=== PATIENT | female | born 1950 | race Caucasian/White ===

== ENCOUNTER → 2016-12-12 | Outpatient (CLI) | payer OTHER, MEDICARE | LOC: FIMAGING 12:58 | PROVIDERS: ATTEND Internal Medicine Hematology & Oncology | DX: Z12.31 Encounter for screening mammogram for malignant neoplasm of breast (principal) | CPT/HCPCS: G0202 ==

== ENCOUNTER 2017-01-31 15:30 | Inpatient (IN) | payer OTHER, MEDICARE ==
--- NOTE | 2017-01-31 16:27 | EDPHY ---
HPI/HX/ROS/PE/MDM Narrative: CHIEF COMPLAINT: Facial and neck swelling. HISTORY OF PRESENT ILLNESS: This patient is a 66 year old female arriving with her for evaluation of right-sided facial and neck swelling worsening over the last 2-3 days. Her symptoms began with swelling in her face and pain in her teeth. Yesterday, she went to the dentist who took x-rays and then made an incision to drain an abscess and prescribed Clindamycin. She feels her facial swelling has reduced. At 2:30 this afternoon, she developed considerable swelling under her chin and down her neck over about 45 minutes. She denies shortness of breath. She has not identified any difficulty swallowing, but has not tried to eat or drink. No fever, chills, chest pain, shortness of breath, palpitations, vomiting, diarrhea , urinary complaints, headache, lightheadedness. REVIEW OF SYSTEMS: Aside from elements discussed in the HPI, a comprehensive 10-point review of systems was reviewed and is negative. PAST MEDICAL HISTORY: 1. History of breast cancer (lumpectomy) 2. Hypertension 3. Congestive heart failure SOCIAL HISTORY: at bedside. Current smoker. Lives in [place]. VITAL SIGNS: Reviewed by me GENERAL: Well-developed, well-nourished, resting comfortably in no respiratory distress. HEENT: Right-sided swelling, erythema, redness and warmth from angle of jaw up to right eye. Tenderness submandibularly. Eyes: No icterus, no injection. Mouth: moist mucous membranes. Swelling along right lower gumline almost covering lower teeth. Swollen uvula. Neck: Swelling under chin extending down to sternal notch. LUNGS: Clear to auscultation bilaterally, no wheezes, rhonchi or rales. CARDIAC: Regular rate and rhythm, no rubs, murmurs or gallops. ABDOMEN: Soft, nontender, nondistended, bowel sounds normal. BACK: No CVA tenderness. EXTREMITIES: No trauma. No edema. Range of motion is normal throughout. NEURO: Alert and oriented, grossly nonfocal. SKIN: Warm and dry, no rash. No urticaria. PSYCHIATRIC: Normal mentation, no agitation. Portions of this note were transcribed by a medical assistant supervisor. I personally performed a history, physical exam, medical decision making, and confirmed accuracy of information the transcribed note. ED Course: 66 year old female presents with right-sided facial swelling following a dental procedure. Evaluation did include blood work and CT scan of the neck and face. 18:30 JESIKA Cortez for otolaryngology assessed this patient. We are awaiting the CT results. 19:[address] Cagle, radiologist. CT shows right lower abscess at molar, 1.2cm, swelling down to sternal area, masseter muscle swelling. ENT recommends clindamycin. Patient's laboratory evaluation also remarkable for mild hyponatremia. 19:18 Spoke with hospitalist service. Dr. Kinney accepts admission. Patient will be treated with IV antibiotics and followed by ENT while in the hospital. Patient has had no fever here. MDM: Differential diagnoses for the patient's symptom complex was considered including but not limited to dental abscess, deep space neck infection, cellulitis of the face, airway compromise, dental caries. - Data Points Imaging Results: Imaging Impressions Neck CT 01/31/17 16:27 Impression: 1. Small lateral posterior lower jaw periodontal abscess of 1.6 x 0.6 x 1.2 cm, lateral to the molar tooth on the right. 2. Significantly more swollen right masseter muscle, also associated with extensive subcutaneous edema and cellulitis, from the jaw to the suprasternal notch. Findings and recommendations discussed with Marielle Santos MD at 1911 hour, 01/31/2017. Final report concurs with initial preliminary interpretation. Imaging: Discussed imaging studies w/ call or contact centre team leader Radiologist Laboratory Results: Laboratory Results 01/31/17 16:56 01/31/17 16:56 01/31/17 01/31/17 01/31/17 16:56 16:56 16:56 WBC 11.79 10^3/uL H 10^3/uL (3.80-9.50) RBC 3.51 10^6/uL L 10^6/uL (4.18-5.33) Hgb 12.2 g/dL L g/dL (12.6-16.3) Hct 34.6 % L % (38.0-47.0) MCV 98.6 fL fL (81.5-99.8) MCH 34.8 pg H pg (27.9-34.1) MCHC 35.3 g/dL g/dL (32.4-36.7) RDW 12.9 % % (11.5-15.2) Plt Count 171 10^3/uL 10^3/uL (150-400) MPV 10.0 fL fL (8.7-11.7) Neut % (Auto) 78.2 % H % (39.3-74.2) Lymph % (Auto) 12.2 % L % (15.0-45.0) [place] % (Auto) 8.1 % % (4.5-13.0) Eos % (Auto) 0.9 % % (0.6-7.6) Baso % (Auto) 0.3 % % (0.3-1.7) Nucleat RBC Rel Count 0.0 % % (0.0-0.2) Absolute Neuts (auto) 9.21 10^3/uL H 10^3/uL (1.70-6.50) Absolute Lymphs (auto) 1.44 10^3/uL 10^3/uL (1.00-3.00) Absolute Monos (auto) 0.95 10^3/uL H 10^3/uL (0.30-0.80) Absolute Eos (auto) 0.11 10^3/uL 10^3/uL (0.03-0.40) Absolute Basos (auto) 0.04 10^3/uL 10^3/uL (0.02-0.10) Absolute Nucleated RBC 0.00 10^3/uL 10^3/uL (0-0.01) Immature Gran % 0.3 % % (0.0-1.1) Immature Gran # 0.04 10^3/uL 10^3/uL (0.00-0.10) Sodium 129 mEq/L L mEq/L (134-144) Potassium 4.3 mEq/L mEq/L (3.5-5.2) Chloride 93 mEq/L L mEq/L (97-110) Carbon Dioxide 25 mEq/l mEq/l (22-31) Anion Gap 11 mEq/L mEq/L (8-16) BUN 11 mg/dL mg/dL (7-23) Creatinine 0.9 mg/dL mg/dL (0.6-1.0) Estimated GFR > 60 Glucose 120 mg/dL H mg/dL (70-100) Serum Osmolality 274 mosmo/kg L mosmo/kg (280-297) Calcium 9.5 mg/dL mg/dL (8.5-10.4) Troponin I < 0.012 ng/mL ng/mL (0.000-0.034) Medications Given: Carvedilol (Coreg) 25 mg PO BID OSVALDO Stop: 07/30/17 20:59 Last Admin: 01/31/17 20:59 Dose: 25 mg Gabapentin (Neurontin) 300 mg PO BID OSVALDO Stop: 07/30/17 20:59 Last Admin: 01/31/17 20:59 Dose: 300 mg Sodium Chloride (Ns) 1,000 mls @ 75 mls/hr IV CONT OSVALDO Stop: 02/01/17 09:49 Last Admin: 01/31/17 20:59 Dose: 1,000 mls Lorazepam (Ativan) 1 mg PO HS PRN PRN Reason: Sleep/Insomnia Stop: 07/30/17 20:18 Last Admin: 01/31/17 21:48 Dose: 1 mg Ondansetron HCl (Zofran Odt) 4 mg PO Q4HRS PRN PRN Reason: Nausea/Vomiting, Use 1st Stop: 07/30/17 20:16 Last Admin: 01/31/17 21:48 Dose: 4 mg Oxycodone HCl (Oxycodone Ir) 5 mg PO Q3HRS PRN PRN Reason: Pain, Severe Able to Take PO Stop: 02/10/17 20:16 Last Admin: 01/31/17 21:48 Dose: 2.5 mg Discontinued Medications Sodium Chloride (Ns) 500 mls @ 1,000 mls/hr IV EDNOW ONE PRN Reason: Protocol Stop: 01/31/17 16:57 Last Admin: 01/31/17 16:58 Dose: 500 mls Clindamycin Phosphate/Dextrose (Cleocin 600 Mg (Premix)) 50 mls @ 100 mls/hr IV EDNOW ONE PRN Reason: Protocol Stop: 01/31/17 19:52 Last Admin: 01/31/17 20:16 Dose: Not Given Ertapenem 1 gm/ Sodium (Chloride) 100 mls @ 200 mls/hr IV EDNOW ONE PRN Reason: Protocol Stop: 01/31/17 19:53 Last Admin: 01/31/17 20:10 Dose: 100 mls General Time Seen by Provider: 01/31/17 16:09 Initial Vital Signs: Initial Vital Signs Temperature (C) 36.5 C 01/31/17 15:35 Heart Rate 69 01/31/17 15:35 Respiratory Rate 18 01/31/17 15:35 Blood Pressure 136/75 H 01/31/17 15:35 O2 Sat (%) 96 01/31/17 15:35 O2 Delivery Mode Room Air Allergies/Adverse Reactions: codeine [Codeine] Allergy (Intermediate, Verified 01/31/17 15:33) Vomiting amoxicillin trihydrate [From Augmentin] Allergy (Mild, Verified 01/31/17 15:33) Rash ciprofloxacin [From Cipro] Allergy (Mild, Verified 01/31/17 15:33) ciprofloxacin HCl [From Cipro] Allergy (Mild, Verified 01/31/17 15:33) potassium clavula *RETIRED-12/10/11 [From Augmentin] Allergy (Mild, Verified 05/18 15:33) Sulfa (Sulfonamide Antibiotics) Allergy (Mild, Verified 01/31/17 15:33) Home Medications: Medication Instructions Recorded Aspirin [Aspirin 81mg (*)] 81 mg PO DAILY@1200 01/31/17 Atorvastatin Calcium [Lipitor 40 40 mg PO DAILY@1800 01/31/17 mg (*)] Carvedilol [Coreg (*)] 25 mg PO BID 01/31/17 Cholecalciferol Vit D3 [Vitamin D3] 1,200 units PO DAILY@10 01/31/17 Clindamycin HCl [Clindamycin] 300 mg PO QID 01/31/17 Clopidogrel Bisulfate [Plavix (*)] 75 mg PO DAILY 01/31/17 Esomeprazole Mag Trihydrate 40 mg PO DAILY 01/31/17 [Nexium] Fluticasone Nasal [Flonase Nasal 1 sprays NASAL DAILY PRN 01/31/17 [place] (RX)] Furosemide [Lasix 40 MG (*)] 40 mg PO BIDDIUR 01/31/17 Gabapentin [Neurontin 300 MG (*)] 300 mg PO BID 01/31/17 [place]/Supplements -Info Only 1 ea PO DAILY 01/31/17 LORazepam [Ativan (*)] 1 mg PO HS PRN 01/31/17 Lisinopril [Zestril 5 mg (*)] 5 mg PO DAILY 01/31/17 Departure - Departure Disposition: [facility] Acute Clinical Impression: Dental abscess Cellulitis Qualifiers: Site of cellulitis: neck Qualified Code(s): L03.221 - Cellulitis of neck Condition: Fair Report Scribed for: Marielle Santos Report Scribed by: Kimberli Evans Date of Report: 01/31/17 Time of Report: 16:48
[2017-01-31] MEDS ORDERED: NS 500 ML IV ONE ×2 (16:28)
--- NOTE | 2017-01-31 17:10 | CPEKG ---
Heart Rate: 67 RR Interval: 896 P-R Interval: 176 QRSD Interval: 82 QT Interval: 428 QTC Interval: 452 P [place]: 43 QRS [place]: 3 T Wave [place]: 45 EKG Severity - NORMAL ECG - EKG Impression: SINUS RHYTHM Electronically Signed By: Marielle Santos 31-Jan-2017 20:31:59
--- NOTE | 2017-01-31 17:10 | CPEKG ---
Heart Rate: 67 RR Interval: 896 P-R Interval: 176 QRSD Interval: 82 QT Interval: 428 QTC Interval: 452 P [place]: 43 QRS [place]: 3 T Wave [place]: 45 EKG Severity - NORMAL ECG - EKG Impression: SINUS RHYTHM Electronically Signed By: Marielle Santos 31-Jan-2017 20:31:59
[2017-01-31 17:12] LABS: PLATELET COUNT 171 10^3/uL (150-400)
[2017-01-31] MEDS ORDERED: IOPAMIDOL (ISOVUE-300) 100 ML BTL ONE ×2 (17:37)
[2017-01-31] MEDS ORDERED: CLINDAMYCIN 600 MG/DEXTROSE 50 ML IV ONE ×2 (19:23)
[2017-01-31] MEDS ORDERED: ERTAPENEM 1 GM in NS 100 ML IV ONE (19:24)
[2017-01-31] MEDS ORDERED: ACETAMINOPHEN 325 MG TAB PO PRN ×2 (20:17)
[2017-01-31] MEDS ORDERED: FLUTICASONE NASAL 120 SPRAYS/16 GM MDI EACHNARE PRN ×2 (20:19)
[2017-01-31] MEDS ORDERED: NS 1,000 ML IV SCH ×2 (20:30)
--- NOTE | 2017-01-31 20:46 | GCON ---
[f rep st] CONSULTATION HISTORY OF PRESENT ILLNESS: Patient is a 66-year-old female, who presents to the emergency room for evaluation of a dental abscess on the right. The patient states she began with some swelling yesterd ay. She went to her dentist, who placed her on clindamycin, and referred her on to another dentist f or further treatment, although she states she does not believe it was an oral surgeon. She notes suzy t she can taste the pus extruding from the area. The patient is afebrile. She does have a history o f diabetes. ALLERGIES: To penicillins. MEDICATIONS: Reviewed. PAST MEDICAL HISTORY: Reviewed. PHYSICAL EXAMINATION: GENERAL: Patient is alert and orientated, in no acute distress. HEAD: Atrau matic, normocephalic. EARS: EACs were clear. TMs were healthy and intact. NOSE: Clear. THROAT: Oral cavity, oropharynx reveals some slight erythema and irritation of the tissue adjacent to her 2nd molar. NECK: Patient with significant swelling of her right jaw. She states that earlier on, she had more swelling around her neck, that has since improved. LABORATORY DATA: Review of her CT scan reveals a 1.5 cm abscess adjacent to the molar on the right. She has cellulitic changes to the surrounding muscles and tissue. ASSESSMENT/PLAN: Patient with a right dental abscess. She has already been in contact with her dent ist for possible tooth extraction. They wished for the area to be calmed down first. She will be tr eated with IV clindamycin 600 mg q.i.d. I will round on her in the morning. Hopefully, she will be improved, and she will need to follow up with her oral surgeon for removal of the tooth. /[id number]/MODL
[2017-01-31] MEDS: GABAPENTIN 300 MG CAP PO SCH ×2 (20:59)
[2017-01-31] MEDS: CARVEDILOL 25 MG TAB PO SCH ×2 (20:59)
--- NOTE | 2017-01-31 21:31 | GHP ---
[f rep st] HISTORY AND PHYSICAL DATE OF ADMISSION: 01/31/2017 CHIEF COMPLAINT: Facial pain and swelling. HISTORY OF PRESENT ILLNESS: The patient is a 66-year-old female with a history of hypertension, heart failure and breast cancer, who presented to the emergency department with right-sided facial, neck, and chin swelling. She was seen by a dentist 1 day prior to arrival, who identified a periodontal abscess and performed an incision and drainage. She was started on oral clindamycin. She felt a little better after this. However, this afternoon, she notes she was grinding her teeth really hard, and she suddenly felt increased swelling and pain in her cheek and below her chin. When she looked in the mirror, she found that her skin was quite red and much more swollen. She denies any dysphagia or difficulty swallowing. She denies fevers, chills, chest pain, or shortness of breath. She has had no nausea, vomiting, or diarrhea. She is admitted to the hospital for further management of periodontal abscess and facial cellulitis. PAST MEDICAL/SURGICAL HISTORY: 1. Hypertension. 2. Chronic heart failure. 3. History of breast cancer, status post lumpectomy and chemotherapy treatment. 4. Coronary artery disease, status post stenting in August of 2012. 5. Ischemic cardiomyopathy with an ejection fraction of 25% to 30% in 2012. 6. Hyperlipidemia. 7. Chronic hyponatremia. It sounds like her baseline is around 130. MEDICATIONS: Please see [facility] for completed outpatient medication list. ALLERGIES: Include amoxicillin, ciprofloxacin, codeine, sulfa. Amoxicillin causes a blistering rash. SOCIAL HISTORY: The patient is . She lives independently with her , who is present at the bedside. She denies alcohol or tobacco use. FAMILY HISTORY: Reviewed and noncontributory. REVIEW OF SYSTEMS: A 10-point review of systems was performed and is negative except as per HPI. PHYSICAL EXAMINATION: VITAL SIGNS: Temperature 36.6, blood pressure 150/72, heart rate 65, respiratory rate 18, she is 92% on room air. GENERAL: The patient is awake, alert and oriented, in no acute distress. HEENT: Head is atraumatic, normocephalic. Pupils equal, round, and reactive to light. Extraocular motions intact. Oropharynx is clear. Mucous membranes are moist. She has right-sided facial edema and erythema, which extends down her mandible and into the submental region involving her anterior neck. HEART: Regular rate and rhythm without murmur. LUNGS: Clear to auscultation bilaterally. ABDOMEN: Soft, obese, nondistended, nontender with normoactive bowel sounds. EXTREMITIES: Without cyanosis, clubbing, or edema. NEUROLOGIC: Grossly nonfocal. Neck CT is personally reviewed and interpreted. This shows small lateral posterior lower jaw periodontal abscess of 1.6 x 0.6 x 1.2 cm lateral to the right molar tooth, as well as swollen right masseter muscle associated with extensive subcutaneous edema and cellulitis from the jaw to the suprasternal notch. EKG shows normal sinus rhythm with no ST-segment or T-wave changes concerning for ischemia. LABORATORY DATA: CBC reveals a white blood cell count of 11.8, her baseline is around 8, hemoglobin 12.2, platelets are normal. Sodium is 129, not far from her baseline. Troponin is negative. ASSESSMENT AND PLAN: The patient is a 66-year-old female with history of coronary artery disease with an ischemic cardiomyopathy and chronic hyponatremia , who was admitted to the hospital with right periodontal abscess and associated facial and neck cellulitis. 1. Periodontal abscess associated with facial and neck cellulitis. She does not meet sepsis criteria. Blood cultures are drawn in the emergency department. She is given a dose of ertapenem due to amoxicillin allergy. ENT evaluated the patient. She likely warrants an Oral surgery consultation, though no oral surgeon is on-call tonight. Will continue antibiotics and request Oral surgery consult tomorrow. I have also requested Infectious Disease consult. Continue to watch her clinical course, follow her cultures, and trend her white blood cell count. 2. Hyponatremia. This is chronic. It seems her baseline is around 130. Will check urine sodium and urine osmolality. It is possible she has a hypovolemic component given her poor oral intake in the past couple of days. Will give her very gentle normal saline at 75 an hour and recheck this in the morning. 3. History of ischemic cardiomyopathy with coronary artery disease status post stenting. It looks like her last stent was in 2012. She is still on dual antiplatelet therapy. Will continue her aspirin, beta-ana maria, KUN inhibitor, and statin. I will hold her Lasix for tonight, as she is a bit dry and I am giving her gentle intravenous fluids. It may be appropriate to resume her Lasix tomorrow. It is not clear when her last echocardiogram was. The last echo available for my review is from June 2012, at which time her ejection fraction was 25% to 30%. Fortunately, she is chest pain free, and her EKG is nonischemic. 4. Hypertension. She is a bit hypertensive on arrival. Will continue her outpatient antihypertensive medications including Coreg and lisinopril. As above, I am holding her Lasix tonight. 5. Deep venous thrombosis prophylaxis. The patient is moderate risk. I will place sequential compression devices for now and defer Lovenox in the event she requires operative drainage of her periodontal abscess. 6. Code status: Patient is full code. 7. Disposition: Patient is admitted to inpatient status, as I expect she will require greater than 48 hours hospitalization for ongoing management of her periodontal abscess and associated facial and neck cellulitis. /[id number]/MODL MTDD
[2017-01-31] MEDS: ONDANSETRON DISINTEGRATING 4 MG TAB PO PRN ×2 (21:48)
[2017-01-31] MEDS: oxyCODONE IR 5 MG TAB PO PRN ×2 (21:48)
[2017-01-31] MEDS: LORazepam 1 MG TAB PO PRN ×2 (21:48)
[2017-02-01] MEDS: oxyCODONE IR 5 MG TAB PO PRN ×4 (01:58→07:51)
[2017-02-01 05:25] LABS: PLATELET COUNT 177 10^3/uL (150-400)
[2017-02-01] MEDS: CARVEDILOL 25 MG TAB PO SCH ×4 (08:08→20:30)
[2017-02-01] MEDS: LISINOPRIL 5 MG TAB PO SCH ×2 (08:10)
[2017-02-01] MEDS: GABAPENTIN 300 MG CAP PO SCH ×4 (08:11→20:31)
[2017-02-01] MEDS ORDERED: PANTOPRAZOLE SODIUM 40 MG TAB PO SCH ×2 (09:00)
[2017-02-01] MEDS ORDERED: ENOXAPARIN 40 MG/0.4 ML SYR SC SCH ×2 (09:00)
[2017-02-01] MEDS: ASPIRIN 81 MG CHEWABLE TAB PO SCH ×2 (11:23)
--- NOTE | 2017-02-01 11:28 | GCON ---
[f rep st] CONSULTATION INFECTIOUS DISEASE CONSULTATION DATE OF CONSULTATION: 02/01/2017 REFERRING PHYSICIAN: Magdalena Kinney MD REASON FOR CONSULT: To assist in management of this 66-year-old female with an odontogenic infection and facial cellulitis. HISTORY OF PRESENT ILLNESS: This patient is a 66-year-old female, whose previous medical history is notable for the followin. Hypertension. 2. Heart failure. 3. Tobacco use disorder. 4. History of breast cancer, status post lumpectomy and chemotherapy. 5. Coronary artery disease. 6. Ischemic cardiomyopathy with an ejection fraction of 30% in 2012. 7. Hyperlipidemia. 8. Chronic hyponatremia. Regarding her present issues, the patient states that she usually goes to the dentist every 6 months and received a notification from her dentist, Dr. Danie Ma in [place], that she was due for a cleaning. The patient was about to call for an appointment when she developed some right-sided facial pain and tooth pain in one of her right lower molars. Because of increasing pain, she was seen by Dr. Ma on Saturday, who took a look in her mouth, started her on oral clindamycin and sent her to another hydraulic tester in [place]. The patient could not remember who the hydraulic tester was, but states that it was a hydraulic tester. She states that she tried to drain it and was successful in draining some purulence. Again, the patient was sent home on oral clindamycin, but continued to have discomfort. She then noted some significant erythema on her right cheek that was taken down to the right side of her neck. She presented to [facility] emergency department yesterday afternoon, where she was given a dose of ertapenem and admitted for further evaluation and treatment. Because no oral surgeon was on-call, they were not consulted. Ear, Nose and Throat was consulted. A CT scan of the neck was performed, that showed a 1.6 x 0.6 x 1.2 cm periodontal abscess lateral to a molar tooth on the right. They felt that Oral Surgery needed to see the patient. I am now asked to assist in her management. Speaking with the patient today, she continues to have pain in her mouth. She feels that the erythema has not continued to spread. She denies any fever, shaking chills, nausea, vomiting, diarrhea or chest pain. No headache. Aside from what is outlined above, 10 systems reviewed and all are negative. PAST MEDICAL HISTORY: Previous medical history as outlined above. ALLERGIES: The patient has multiple drug allergies which include codeine, amoxicillin and Augmentin. When asked her about the reaction to these, the patient tells me that she developed severe blistering on her hands and just could not tolerate Augmentin or amoxicillin. She is also listed as having an allergy to ciprofloxacin and sulfa. SOCIAL HISTORY: The patient lives in [place]. She has a longstanding tobacco use disorder. She drinks perhaps 1 or 2 drinks a night. No illicit substances. She states she lives with her . She has a Doberman. No recent travel. FAMILY HISTORY: Noncontributory. REVIEW OF SYSTEMS: Ten systems reviewed and all are negative, except for what is listed in the HPI. PHYSICAL EXAMINATION: VITAL SIGNS: T-current is 36.8, T-max is same. Heart rate is 88, blood pressure 137/64. GENERAL: A middle-aged woman, lying in bed , nontoxic, no apparent distress. HEENT: Atraumatic, normocephalic. Pupils equal, round, react to light. Extraocular movements are intact. No conjunctival injection or icterus or petechiae. No discharge from the nares. Mucous membranes are moist. No thrush noted. On the right side lower molars, there is significant swelling of the gums with tenderness. Her teeth are in reasonable repair. Her face is notable for significant swelling on the right side of the face extending down into the neck with blanching erythema. No bullae. No hypesthesia. NECK: Supple. CARDIOVASCULAR: A 2/6 systolic ejection murmur right upper and left lower sternal border. No gallop noted. S1 , S2. LUNGS: No increased respiratory effort. Clear to auscultation bilaterally; with no rales, rhonchi or wheeze. ABDOMEN: Obese, soft. No organomegaly or tenderness to palpation. EXTREMITIES: No clubbing, cyanosis or edema. SKIN: Warm and dry. No obvious rashes. Cellulitis of the face and neck as outlined above. NEUROLOGIC: She is alert and oriented x3. Moving all 4 extremities. Cranial nerves 2 through 12 intact to exam. LABORATORY DATA: Blood cultures x2 are pending. White blood cell count of 10, down from 11.7 on admission. Hematocrit 31, platelet count of 177. BUN and creatinine 7/0.7. Neck CT as outlined above. IMPRESSION: 66-year-old female with facial cellulitis secondary to odontogenic infection/ periodontal abscess. Unfortunately, the patient has an unusual allergic reaction to ampicillin/sulbactam which precludes use of this antibiotic. Because of increasing resistance to oral streptococci with Clindamycin, prefer Ertapenem. PLAN: 1. Continue Ertapenem as is. 2. I have spoken with Dr. Armstrong of oral surgery, who has graciously agreed to see this patient in consultation later this afternoon. Her care is greatly appreciated. Of note, would like to obtain operative cultures in this patient if possible, to help guide oral antibiotic therapy moving forward. Thank you very much for consulting Infectious Diseases. We will continue to follow this patient with you. /[id number]/MODL MTDD
--- NOTE | 2017-02-01 11:28 | GCON ---
[f rep st] CONSULTATION INFECTIOUS DISEASE CONSULTATION DATE OF CONSULTATION: 02/01/2017 REFERRING PHYSICIAN: Magdalena Kinney MD REASON FOR CONSULT: To assist in management of this 66-year-old female with an odontogenic infection and facial cellulitis. HISTORY OF PRESENT ILLNESS: This patient is a 66-year-old female, whose previous medical history is notable for the followin. Hypertension. 2. Heart failure. 3. Tobacco use disorder. 4. History of breast cancer, status post lumpectomy and chemotherapy. 5. Coronary artery disease. 6. Ischemic cardiomyopathy with an ejection fraction of 30% in 2012. 7. Hyperlipidemia. 8. Chronic hyponatremia. Regarding her present issues, the patient states that she usually goes to the dentist every 6 months and received a notification from her dentist, Dr. Danie Ma in [place], that she was due for a cleaning. The patient was about to call for an appointment when she developed some right-sided facial pain and tooth pain in one of her right lower molars. Because of increasing pain, she was seen by Dr. Ma on Saturday, who took a look in her mouth, started her on oral clindamycin and sent her to another global position system technician in [place]. The patient could not remember who the global position system technician was, but states that it was a global position system technician. She states that she tried to drain it and was successful in draining some purulence. Again, the patient was sent home on oral clindamycin, but continued to have discomfort. She then noted some significant erythema on her right cheek that was taken down to the right side of her neck. She presented to [facility] emergency department yesterday afternoon, where she was given a dose of ertapenem and admitted for further evaluation and treatment. Because no oral surgeon was on-call, they were not consulted. Ear, Nose and Throat was consulted. A CT scan of the neck was performed, that showed a 1.6 x 0.6 x 1.2 cm periodontal abscess lateral to a molar tooth on the right. They felt that Oral Surgery needed to see the patient. I am now asked to assist in her management. Speaking with the patient today, she continues to have pain in her mouth. She feels that the erythema has not continued to spread. She denies any fever, shaking chills, nausea, vomiting, diarrhea or chest pain. No headache. Aside from what is outlined above, 10 systems reviewed and all are negative. PAST MEDICAL HISTORY: Previous medical history as outlined above. ALLERGIES: The patient has multiple drug allergies which include codeine, amoxicillin and Augmentin. When asked her about the reaction to these, the patient tells me that she developed severe blistering on her hands and just could not tolerate Augmentin or amoxicillin. She is also listed as having an allergy to ciprofloxacin and sulfa. SOCIAL HISTORY: The patient lives in [place]. She has a longstanding tobacco use disorder. She drinks perhaps 1 or 2 drinks a night. No illicit substances. She states she lives with her . She has a Doberman. No recent travel. FAMILY HISTORY: Noncontributory. REVIEW OF SYSTEMS: Ten systems reviewed and all are negative, except for what is listed in the HPI. PHYSICAL EXAMINATION: VITAL SIGNS: T-current is 36.8, T-max is same. Heart rate is 88, blood pressure 137/64. GENERAL: A middle-aged woman, lying in bed , nontoxic, no apparent distress. HEENT: Atraumatic, normocephalic. Pupils equal, round, react to light. Extraocular movements are intact. No conjunctival injection or icterus or petechiae. No discharge from the nares. Mucous membranes are moist. No thrush noted. On the right side lower molars, there is significant swelling of the gums with tenderness. Her teeth are in reasonable repair. Her face is notable for significant swelling on the right side of the face extending down into the neck with blanching erythema. No bullae. No hypesthesia. NECK: Supple. CARDIOVASCULAR: A 2/6 systolic ejection murmur right upper and left lower sternal border. No gallop noted. S1 , S2. LUNGS: No increased respiratory effort. Clear to auscultation bilaterally; with no rales, rhonchi or wheeze. ABDOMEN: Obese, soft. No organomegaly or tenderness to palpation. EXTREMITIES: No clubbing, cyanosis or edema. SKIN: Warm and dry. No obvious rashes. Cellulitis of the face and neck as outlined above. NEUROLOGIC: She is alert and oriented x3. Moving all 4 extremities. Cranial nerves 2 through 12 intact to exam. LABORATORY DATA: Blood cultures x2 are pending. White blood cell count of 10, down from 11.7 on admission. Hematocrit 31, platelet count of 177. BUN and creatinine 7/0.7. Neck CT as outlined above. IMPRESSION: 66-year-old female with facial cellulitis secondary to odontogenic infection/ periodontal abscess. Unfortunately, the patient has an unusual allergic reaction to ampicillin/sulbactam which precludes use of this antibiotic. Because of increasing resistance to oral streptococci with Clindamycin, prefer Ertapenem. PLAN: 1. Continue Ertapenem as is. 2. I have spoken with Dr. Armstrong of oral surgery, who has graciously agreed to see this patient in consultation later this afternoon. Her care is greatly appreciated. Of note, would like to obtain operative cultures in this patient if possible, to help guide oral antibiotic therapy moving forward. Thank you very much for consulting Infectious Diseases. We will continue to follow this patient with you. /[id number]/MODL MTDD
--- NOTE | 2017-02-01 11:28 | GCON ---
[f rep st] CONSULTATION INFECTIOUS DISEASE CONSULTATION DATE OF CONSULTATION: 02/01/2017 REFERRING PHYSICIAN: Magdalena Kinney MD REASON FOR CONSULT: To assist in management of this 66-year-old female with an odontogenic infection and facial cellulitis. HISTORY OF PRESENT ILLNESS: This patient is a 66-year-old female, whose previous medical history is notable for the followin. Hypertension. 2. Heart failure. 3. Tobacco use disorder. 4. History of breast cancer, status post lumpectomy and chemotherapy. 5. Coronary artery disease. 6. Ischemic cardiomyopathy with an ejection fraction of 30% in 2012. 7. Hyperlipidemia. 8. Chronic hyponatremia. Regarding her present issues, the patient states that she usually goes to the dentist every 6 months and received a notification from her dentist, Dr. Danie Ma in [place], that she was due for a cleaning. The patient was about to call for an appointment when she developed some right-sided facial pain and tooth pain in one of her right lower molars. Because of increasing pain, she was seen by Dr. Ma on Saturday, who took a look in her mouth, started her on oral clindamycin and sent her to another hand tufter in [place]. The patient could not remember who the hand tufter was, but states that it was a hand tufter. She states that she tried to drain it and was successful in draining some purulence. Again, the patient was sent home on oral clindamycin, but continued to have discomfort. She then noted some significant erythema on her right cheek that was taken down to the right side of her neck. She presented to [facility] emergency department yesterday afternoon, where she was given a dose of ertapenem and admitted for further evaluation and treatment. Because no oral surgeon was on-call, they were not consulted. Ear, Nose and Throat was consulted. A CT scan of the neck was performed, that showed a 1.6 x 0.6 x 1.2 cm periodontal abscess lateral to a molar tooth on the right. They felt that Oral Surgery needed to see the patient. I am now asked to assist in her management. Speaking with the patient today, she continues to have pain in her mouth. She feels that the erythema has not continued to spread. She denies any fever, shaking chills, nausea, vomiting, diarrhea or chest pain. No headache. Aside from what is outlined above, 10 systems reviewed and all are negative. PAST MEDICAL HISTORY: Previous medical history as outlined above. ALLERGIES: The patient has multiple drug allergies which include codeine, amoxicillin and Augmentin. When asked her about the reaction to these, the patient tells me that she developed severe blistering on her hands and just could not tolerate Augmentin or amoxicillin. She is also listed as having an allergy to ciprofloxacin and sulfa. SOCIAL HISTORY: The patient lives in [place]. She has a longstanding tobacco use disorder. She drinks perhaps 1 or 2 drinks a night. No illicit substances. She states she lives with her . She has a Doberman. No recent travel. FAMILY HISTORY: Noncontributory. REVIEW OF SYSTEMS: Ten systems reviewed and all are negative, except for what is listed in the HPI. PHYSICAL EXAMINATION: VITAL SIGNS: T-current is 36.8, T-max is same. Heart rate is 88, blood pressure 137/64. GENERAL: A middle-aged woman, lying in bed , nontoxic, no apparent distress. HEENT: Atraumatic, normocephalic. Pupils equal, round, react to light. Extraocular movements are intact. No conjunctival injection or icterus or petechiae. No discharge from the nares. Mucous membranes are moist. No thrush noted. On the right side lower molars, there is significant swelling of the gums with tenderness. Her teeth are in reasonable repair. Her face is notable for significant swelling on the right side of the face extending down into the neck with blanching erythema. No bullae. No hypesthesia. NECK: Supple. CARDIOVASCULAR: A 2/6 systolic ejection murmur right upper and left lower sternal border. No gallop noted. S1 , S2. LUNGS: No increased respiratory effort. Clear to auscultation bilaterally; with no rales, rhonchi or wheeze. ABDOMEN: Obese, soft. No organomegaly or tenderness to palpation. EXTREMITIES: No clubbing, cyanosis or edema. SKIN: Warm and dry. No obvious rashes. Cellulitis of the face and neck as outlined above. NEUROLOGIC: She is alert and oriented x3. Moving all 4 extremities. Cranial nerves 2 through 12 intact to exam. LABORATORY DATA: Blood cultures x2 are pending. White blood cell count of 10, down from 11.7 on admission. Hematocrit 31, platelet count of 177. BUN and creatinine 7/0.7. Neck CT as outlined above. IMPRESSION: 66-year-old female with facial cellulitis secondary to odontogenic infection/ periodontal abscess. Unfortunately, the patient has an unusual allergic reaction to ampicillin/sulbactam which precludes use of this antibiotic. Because of increasing resistance to oral streptococci with Clindamycin, prefer Ertapenem. PLAN: 1. Continue Ertapenem as is. 2. I have spoken with Dr. Armstrong of oral surgery, who has graciously agreed to see this patient in consultation later this afternoon. Her care is greatly appreciated. Of note, would like to obtain operative cultures in this patient if possible, to help guide oral antibiotic therapy moving forward. Thank you very much for consulting Infectious Diseases. We will continue to follow this patient with you. /[id number]/MODL MTDD
--- NOTE | 2017-02-01 11:54 | PDMN ---
Medical Necessity Medical necessity: est los>2mn for R periodontal abscess w/associated facial and neck cellulitis, s/p I&D at dental office day [employer]; requires IV abx, oral surgery and ID consults; comorbid hyponatremia, htn, CAD, and ischemic cardiomyopathy; per order and H&P 01/31/17
--- NOTE | 2017-02-01 11:54 | PDMN ---
Medical Necessity Medical necessity: est los>2mn for R periodontal abscess w/associated facial and neck cellulitis, s/p I&D at dental office day [employer]; requires IV abx, oral surgery and ID consults; comorbid hyponatremia, htn, CAD, and ischemic cardiomyopathy; per order and H&P 01/31/17
--- NOTE | 2017-02-01 11:54 | PDMN ---
Medical Necessity Medical necessity: est los>2mn for R periodontal abscess w/associated facial and neck cellulitis, s/p I&D at dental office day [employer]; requires IV abx, oral surgery and ID consults; comorbid hyponatremia, htn, CAD, and ischemic cardiomyopathy; per order and H&P 01/31/17
[2017-02-01] MEDS: ONDANSETRON 4 MG/2 ML VIAL IVP PRN ×4 (11:55→18:23)
[2017-02-01] MEDS: HYDROCODONE/APAP 5/325 TAB PO PRN ×4 (13:17→20:40)
--- NOTE | 2017-02-01 14:27 | SOAPPROG ---
SOAP Progress Note Assessment/Plan: Assessmpt with dental abcess. She states the swellign is a little worse today. Still tasting pus in mouth. O- jaw and neck a littel more swollen today, soft. Still extruding pus near molar. Plan: Pt with ddental abscess. Oral surgery has been consulted and they are coming in to manage tooth. I spoke with ID and she has he on Erpanem. We will sign off on her. 02/01/17 14:25 Objective: Vital Signs Temp Pulse Resp BP Pulse Ox 36.6 C 60 18 122/64 H 95 02/01/17 10:57 02/01/17 10:57 02/01/17 10:57 02/01/17 10:57 02/01/17 10:57 Laboratory Results 02/01/17 05:13 02/01/17 05:13 01/31/17 02/01/17 02/02/17 05:59 05:59 05:59 Intake Total 1100 1373 Balance 1100 1373 ICD10 Worksheet Patient Problems: Problems Problem Status Onset Cellulitis Acute Dental abscess Acute Acute hyponatremia Acute
--- NOTE | 2017-02-01 14:51 | ASMTCMCOM ---
CM Note CM Note Notes: Pt. is a 66-year-old woman experiencing facial pain and swelling. Has a periodonal abscess. Hx. HTN, chronic heart failure, breast cancer, CAD, hyperlipidemia, and smoking. Pt. on Ertapenem IV antibiotics at this time. Note: Pt. w/ several antibiotic allergies. Pt. lives w/ her and lives independently. CM to follow should Pt. need IV antibiotics at d/c. Date Signed: 02/01/2017 02:51 PM Electronically Signed By:Khadijah Flores LCSW
[2017-02-01] MEDS ORDERED: [UNRECOGNIZED DRUG - OTHER] PO SCH ×2 (18:00)
[2017-02-01] MEDS: [UNRECOGNIZED DRUG - OTHER] PO SCH ×2 (18:21)
[2017-02-01] MEDS: ERTAPENEM 1 GM in NS 100 ML IV SCH (18:23)
[2017-02-01] MEDS: ATORVASTATIN CALCIUM 40 MG TAB PO SCH ×2 (18:23)
[2017-02-01] MEDS ORDERED: POLYETHYLENE GLYCOL 3350 17 GM PKT PO PRN ×2 (18:56)
[2017-02-01] MEDS ORDERED: LACTULOSE 20 GM/30 ML UDCUP PO PRN ×2 (18:56)
[2017-02-01] MEDS ORDERED: MAGNESIUM HYDROXIDE 30 ML UDCUP PO PRN ×2 (18:56)
[2017-02-01] MEDS ORDERED: BISACODYL 10 MG SUPP PR PRN ×2 (18:56)
--- NOTE | 2017-02-01 19:01 | HOSPPROG ---
Hospitalist Progress Note Assessment/Plan: Assessment: 66-year-old female presents with periodontal abscess and cellulitis Plan: 1. Peritonsillar abscess and cellulitis. Acute, new problem this provider, further workup indicated. Right side, mandibular, with overlying cellulitis extending into the TMJ on face CT -patient requires source control with definitive extraction -discussed with Dr. Radha Oneill, she has recommended ongoing IV ertapenem therapy as well as extraction, and she has contacted Dr. Lisa Armstrong in order to perform this procedure tomorrow morning -the patient has informed me that she has had frequent difficulties with the dry socket along her mandible after wisdom tooth removal, including trapping of food, patient suspect this is the affected area and she would like Dr. Armstrong to know this going into the procedure so that the patient may be able to avoid having a exposed dry socket moving forward -adjustment to oral antibiotics from intravenous will be under the direction of Infectious Disease tomorrow, pending culture data -pain management with [place], patient prefers over other opiates -bowel regimen ordered -NPO in a.m., fluids overnight -repeat CBC in a.m. 2. Ischemic cardiomyopathy with chronic systolic congestive heart failure. No evidence of acute exacerbation, ejection fraction between 20 and 30%, EKG demonstrating normal sinus mechanism with Q-wave in lead 3, personally interpreted, troponin level negative on presentation -continue beta-ana maria, KUN-inhibitor, hold diuretic given NPO status -continue aspirin, hold Plavix given that is been 4 years since her stent placement, last dosage was 11/2 a.m. it should be reasonably safe from a bleeding risk standpoint to performed the above procedure 3. Chronic hyponatremia. Baseline around 130 per review of outside records, continue to monitor Diet. Cardiac, NPO after midnight Code. Full Prophylaxis. High risk patient, hold pharm, SCDs Disposition. Anticipated discharge uncertain this time, pending culture data and surgical procedures outlined above. Subjective: Patient reports ongoing pain on her face, does not like the feeling of oxycodone Objective: Vital Signs Temp Pulse Resp BP Pulse Ox 37.1 C 65 16 119/58 L 93 02/01/17 15:14 02/01/17 15:14 02/01/17 15:14 02/01/17 15:14 02/01/17 15:14 Laboratory Results 02/01/17 05:13 02/01/17 05:13 01/31/17 02/01/17 02/02/17 05:59 05:59 05:59 Intake Total 1100 1773 Balance 1100 1773 - Physical Exam Constitutional: no apparent distress, appears nourished, uncomfortable, No not in pain (Moderate in right face) Ears, Nose, Mouth, Throat: other (Right mandibular area of swelling, with mild pustulant, some erythema comma dentition looks normal) Cardiovascular: regular rate and rhythym, no murmur, rub, or gallop, No edema Respiratory: no respiratory distress, no rales or rhonchi, clear to auscultation Gastrointestinal: normoactive bowel sounds, soft, non-tender abdomen, no palpable masses Skin: other (Tenderness over the right cheek, with some very mild induration and warmth, no overt fluctuance) Neurologic: AAOx3, sensation intact bilaterally, facial droop (Patient protecting right mass) Psychiatric: interacting appropriately, not anxious, not encephalopathic, thought process linear ICD10 Worksheet Patient Problems: Problems Problem Status Onset Acute hyponatremia Acute Cellulitis Acute Dental abscess Acute
--- NOTE | 2017-02-01 19:05 | GCON ---
[f rep st] ORAL & MAXILLOFACIAL SURGERY CONSULTATION CHIEF COMPLAINT: Facial pain and swelling. HISTORY OF PRESENT ILLNESS: 66-year-old, female who presented to the ED with right-sided facial, neck, and chin swelling. Her dentist is Dr. Danie Ma in [place], who identified a periodontal abscess 1 day previously, performed an I&D, and started her on oral clindamycin. She had transient improvement but then developed progressing pain and swelling. Imaging was consistent with a right mandibular subperiosteal abscess, ID placed the patient on ertapenem, and OMFS was consulted for surgical intervention. PAST MEDICAL HISTORY: Hypertension; heart failure; breast cancer, status post lumpectomy and chemotherapy; coronary artery disease, status post stent placement; ischemic cardiomyopathy; hyperlipidemia; and chronic hyponatremia. MEDICATIONS: See MAR. ALLERGIES: Amoxicillin, Cipro, codeine, sulfa. SOCIAL HISTORY: The patient is . Denies alcohol or tobacco use. FAMILY HISTORY: Noncontributory. SURGICAL HISTORY: Lumpectomy, cardiac stent. REVIEW OF SYSTEMS: A 10-point review of systems was performed and negative except as per the HPI. PHYSICAL EXAMINATION: BP 119/58, HR 65, RR 16, O2 93% on 3L O2 T 37.1. GENERAL : No acute distress, resting comfortably in bed, right lower facial third edema , induration, erythema, mandibular right inferior border and angle palpale, CN II-XII grossly intact, mild tenderness to palpation, BALA 30 mm with assistance, dentition grossly intact with percussion sensitivity of #31, right mandibular vestible with gingival bogginess and edema, no purulence on palpation. IMAGING: CT reviewed. ASSESSMENT AND PLAN: Right mandibular odontogenic infection #31 with associated subperiosteal abscess, will require exploration, extraction #31, I&D , and placement of drains. scheduled for OR tomorrow morning at 9 am NPO after MN abx per ID will add periogard /[id number]/MODL MTDD
[2017-02-01] MEDS ORDERED: NS 1,000 ML IV SCH ×2 (19:15)
[2017-02-01] MEDS: LORazepam 1 MG TAB PO PRN ×2 (20:31)
[2017-02-01] MEDS: SENNOSIDES/DOCUSATE SODIUM TAB PO SCH ×2 (20:31)
[2017-02-02 04:47] LABS: PLATELET COUNT 163 10^3/uL (150-400)
--- NOTE | 2017-02-02 08:21 | PCMIDPN ---
Assessment/Plan: 1. Subperiosteal abscess associated with odontogenic infection with concomitant facial cellulitis: Continue ertapenem. The patient will go to the operating room today for incision and drainage and extraction of two carious teeth. 's assistance greatly appreciated. Would like to obtain cultures from the operating room to help guide oral therapy moving forward given increasing resistance of oral streptococci/prevotella to clindamycin. Facial cellulitis much improved. Subjective: Patient nervous about going to the operating room given costs. Facial swelling and erythema much better. Objective: Ertapenem 1 g IV daily day 2 Afebrile Vital Signs Temp Pulse Resp BP Pulse Ox 36.5 C 64 16 154/76 H 96 02/02/17 07:35 02/02/17 07:35 02/02/17 07:35 02/02/17 07:35 02/02/17 07:35 Laboratory Results 02/02/17 04:21 02/02/17 04:21 02/01/17 02/02/17 02/03/17 05:59 05:59 04:59 Intake Total 1100 1923 Balance 1100 1923 Blood cultures negative so far - Physical Exam General Appearance: other (Right facial swelling and erythema much better today. ) EENT: other (Significant gingivitis associated with abscess lower teeth on the right) Skin: No rash ICD10 Worksheet Patient Problems: Problems Problem Status Onset Cellulitis Acute Dental abscess Acute Acute hyponatremia Acute
[2017-02-02] MEDS ORDERED: MIDAZOLAM 2 MG/2 ML VIAL IVP ONE ×2 (08:27)
--- NOTE | 2017-02-02 08:27 | PDANEPAE ---
ANE History of Present Illness facial I and D s/p dental/facial I and D for cellulitis ANE Past Medical History - Cardiovascular History Hx Hypertension: Yes Hx Coronary Artery / Peripheral Vascular Disease: Yes Hx CHF / Valvular Disease: Yes - Pulmonary History Hx Oxygen in Use at Home: No Hx Sleep Apnea: Yes - Endocrine History Hx Diabetes: No - Renal History Renal History Comment: hyponatremia - Chronic Pain History Chronic Pain: Yes ANE Review of Systems Review of Systems: ANE Patient History - Allergies Allergies/Adverse Reactions: codeine [Codeine] Allergy (Intermediate, Verified 01/31/17 15:33) Vomiting amoxicillin trihydrate [From Augmentin] Allergy (Mild, Verified 01/31/17 15:33) Rash ciprofloxacin [From Cipro] Allergy (Mild, Verified 01/31/17 15:33) ciprofloxacin HCl [From Cipro] Allergy (Mild, Verified 01/31/17 15:33) potassium clavula *RETIRED-12/10/11 [From Augmentin] Allergy (Mild, Verified 05/18 15:33) Sulfa (Sulfonamide Antibiotics) Allergy (Mild, Verified 01/31/17 15:33) - Home Medications Home medications: home medication list seen and reviewed Home Medications: Aspirin [Aspirin 81mg (*)] 81 mg PO DAILY@1200 01/31/17 [Last Taken 01/31/17] Atorvastatin Calcium [Lipitor 40 mg (*)] 40 mg PO DAILY@1800 01/31/17 [Last Taken 01/30/17] Carvedilol [Coreg (*)] 25 mg PO BID 01/31/17 [Last Taken 01/31/17 09:00] Cholecalciferol Vit D3 [Vitamin D3] 1,200 units PO DAILY@10 01/31/17 [Last Taken 01/31/17] Clindamycin HCl [Clindamycin] 300 mg PO QID 01/31/17 [Last Taken 01/31/17] Clopidogrel Bisulfate [Plavix (*)] 75 mg PO DAILY 01/31/17 [Last Taken 01/31/17] Esomeprazole Mag Trihydrate [Nexium] 40 - 80 mg PO DAILY 01/31/17 [Last Taken ] Fluticasone Nasal [Flonase Nasal [place] (RX)] 1 sprays NASAL DAILY PRN 01/31/17 [ Last Taken Unknown] Furosemide [Lasix 40 MG (*)] 40 mg PO BIDDIUR 01/31/17 [Last Taken 01/29/17] Gabapentin [Neurontin 300 MG (*)] 300 mg PO BID 01/31/17 [Last Taken 01/31/17] Herbals/Supplements -Info Only 1 ea PO DAILY 01/31/17 [Last Taken Unknown] LORazepam [Ativan (*)] 1 mg PO HS PRN 01/31/17 [Last Taken Unknown] Lisinopril [Zestril 5 mg (*)] 5 mg PO DAILY 01/31/17 [Last Taken 01/31/17] Electrolyte Supplement 1 tab PO TIDMEAL 02/01/17 [Last Taken Unknown] - NPO status NPO Status: no food or drink >8 hours - Anes Hx Anes Hx: no prior problems - Smoking Hx Smoking Status: Current every day smoker - Family Anes Hx Family Anes Hx: none ANE Labs/Vital Signs - Labs Result Diagrams: 02/02/17 04:21 02/02/17 04:21 - Vital Signs Blood Pressure: 154/76 Heart Rate: 64 Respiratory Rate: 16 O2 Sat (%): 96 Height: 165.1 cm Weight: 84.1 kg ANE Physical Exam - Airway Neck exam: decreased ROM Mallampati Score: Class 3 - Pulmonary Pulmonary: no respiratory distress - Cardiovascular Cardiovascular: regular rate and rhythym - ASA Status ASA Status: IV ANE Anesthesia Plan Anesthesia Plan: general endotracheal anesthesia
[2017-02-02] MEDS: NEXIUM 40MG PO SCH ×2 (08:30)
[2017-02-02] MEDS ORDERED: Herbals/Supplements -Info Only PO SCH ×2 (09:00)
[2017-02-02] MEDS ORDERED: PANTOPRAZOLE SODIUM 40 MG TAB PO SCH ×2 (09:00)
[2017-02-02] MEDS ORDERED: LIDO/EPI 2%** Not for Epidural 20 ML MDV ONE ×2 (09:25)
[2017-02-02] MEDS ORDERED: BUPIVACAINE 0.5% 30 ML SDV ONE ×2 (09:25)
[2017-02-02] MEDS ORDERED: CHLORHEXIDINE GLUCONATE 15 ML UDL ONE ×2 (09:26)
[2017-02-02] MEDS ORDERED: DEXAMETHASONE 4 MG/ML VIAL ONE ×2 (09:40)
[2017-02-02] MEDS ORDERED: LIDOCAINE 2% 100 MG/5 ML SYR ONE ×2 (09:40)
[2017-02-02] MEDS ORDERED: ONDANSETRON 4 MG/2 ML VIAL ONE ×2 (09:40)
[2017-02-02] MEDS ORDERED: fentaNYL 100 MCG/2 ML INJ ONE ×4 (09:41→11:04)
[2017-02-02] MEDS ORDERED: PROPOFOL 200 MG/20 ML VIAL ONE ×2 (09:41)
[2017-02-02] MEDS ORDERED: ROCURONIUM 50 MG/5 ML VIAL ONE ×2 (09:47)
[2017-02-02] MEDS ORDERED: MIDAZOLAM 2 MG/2 ML VIAL ONE ×2 (09:50)
[2017-02-02] MEDS ORDERED: CHOLECALCIFEROL PO SCH ×2 (10:00)
[2017-02-02] MEDS ORDERED: SUGAMMADEX SODIUM 200 MG/2 ML VIAL IVP ONE ×2 (10:38)
[2017-02-02] MEDS ORDERED: HYDROmorphONE/DILAUDID 1 MG/ML INJ IVP PRN ×2 (10:53)
[2017-02-02] MEDS ORDERED: ALBUTEROL 3 ML DEYVIAL IH PRN ×2 (10:53)
[2017-02-02] MEDS ORDERED: MEPERIDINE 25 MG/ML SYR IVP PRN ×2 (10:53)
[2017-02-02] MEDS ORDERED: LABETALOL HCL 50 MG/10 ML SYR IVP PRN ×2 (10:53)
[2017-02-02] MEDS ORDERED: DEXAMETHASONE 4 MG/ML VIAL IVP PRN ×2 (10:53)
[2017-02-02] MEDS ORDERED: NALOXONE HCL 0.4 MG/ML INJ IVP PRN ×2 (10:53)
[2017-02-02] MEDS ORDERED: OXYCODONE/APAP 5/325 TAB PO PRN ×2 (10:53)
[2017-02-02] MEDS ORDERED: PROMETHAZINE HCL 25 MG/ML INJ IVP PRN ×2 (10:53)
--- NOTE | 2017-02-02 10:53 | POSTANESTH ---
Post Anesthetic Evaluation Cardiovascular Status: Similar to Pre-Op Cond Respiratory Status: Similar to Pre-op Cond. Level of Consciousness/Mental Status: Can Participate in Eval, Mildly Sleepy, Arousable Pain Control: Adequate, Prn Tx Ordered Nausea/Vomiting Control: Adequate, Prn Tx Ordered Complications Possibly Related to Anesthesia: None Noted
--- NOTE | 2017-02-02 10:53 | POSTOPPROG ---
Post Op Note Date of Operation: 02/02/17 Surgeon: Kaykay Armstrong Nursing Assistants Teacher: n/a Anesthesiologist: Alfredo Camargo Anesthesia: GET(General Endotracheal) Pre-op Diagnosis: caries #31, R mandibular subperiosteal abscess Post-op Diagnosis: same Indication: infection Procedure: extraction #31, I&D R mandibular subperiosteal abscess, drain x 1 Findings: purulent drainage Inf/Abcess present in the surg proc area at time of surgery?: Yes Depth: Deep Incisional (Fascial) EBL: Minimal Total fluids administered: see anesthesia record Complications: n/a Drains: Sheela (x 1, intraoral right mandibular vestibule)
--- NOTE | 2017-02-02 11:07 | GOP ---
[f rep st] ORAL & MAXILLOFACIAL SURGERY OPERATIVE REPORT DATE OF OPERATION: 02/02/2017 SURGEON: Lisa Armstrong DDS, MD ANESTHESIA: General endotracheal. PREOPERATIVE DIAGNOSIS: Caries #31, right mandibular subperiosteal abscess. POSTOPERATIVE DIAGNOSIS: Caries #31, right mandibular subperiosteal abscess. PROCEDURE PERFORMED: 1. Extraction of tooth #31. 2. I and D exploration right mandibular subperiosteal abscess. 3. Placement of [place] drain x1. FINDINGS: purulent drainage SPECIMENS: None. ESTIMATED BLOOD LOSS: Minimal. CULTURES: Two aerobic and anaerobic. DISPOSITION: Floor. INDICATIONS: The patient is a 66-year-old female admitted with progressive right lower face pain, swelling and redness. Previously seen by her dentist who referred her to an wire straightening machine operator for potential root canal therapy #31 after attempting a superficial I&D of the right lower mandible. She continued to have worsening of her symptoms and presented to the ED. CT exam demonstrated a right mandibular subperiosteal abscess, clinical exam demonstrated symptoms with tooth #31. Surgical intervention is warranted to manage the infection; risks, benefits and complications were explained to the patient. The consent form was signed and she was admitted for observation and IV antibiotic therapy. DESCRIPTION OF PROCEDURE: The patient was correctly identified in the preoperative holding area and transported to OR 4. She was transferred to the OR bed in the supine position where all ASA monitors were attached. She was intravenously induced under general anesthesia and an oral endotracheal tube was placed and secured to the left side of the oral cavity. She was prepped and draped in the usual sterile fashion and a time-out was performed where all members of the team were in agreement. A bite block was placed and 6 cc total of 2% lidocaine and 0.5% Marcaine was administered to block the right inferior alveolar, lingual, and buccal nerves. A throat pack was placed and the oral cavity was thoroughly brushed with Peridex oral rinse. A crestal incision #29 through 31 with a posterior hockey-stick extension was created and a full- thickness mucoperiosteal flap was developed. Purulent drainage was obtained from this area and cultures were taken for aerobic/anaerobic cultures. A buccal trough was created around tooth #31 whick was then elevated and delivered atraumatically. The socket was curettaged and the right buccal plate of the mandible was explored to the inferior border. Old clot was present from previous "surgical" intervention by her dentist. This was suctioned out and the area was thoroughly irrigated with normal saline. A half-inch Sheela was placed and sutured to the #31 site with interrupted 3-0 chromic gut sutures. A 4 x 4 dressing with umbilical tape was placed in this region for hemostasis. The patient was awakened, extubated and transported to PACU in the care of her surgical team. /[id number]/MODL MTDD
[2017-02-02] MEDS: fentaNYL 100 MCG/2 ML INJ IVP PRN ×4 (11:10→11:27)
[2017-02-02] MEDS: ONDANSETRON 4 MG/2 ML VIAL IVP PRN ×2 (11:48)
[2017-02-02] MEDS: CARVEDILOL 25 MG TAB PO SCH ×4 (13:18→21:43)
[2017-02-02] MEDS: LISINOPRIL 5 MG TAB PO SCH ×2 (13:19)
[2017-02-02] MEDS: CHOLECALCIFEROL VIT D3 1,000 UNITS TAB PO SCH ×2 (13:20)
[2017-02-02] MEDS: GABAPENTIN 300 MG CAP PO SCH ×4 (13:20→21:43)
[2017-02-02] MEDS: ASPIRIN 81 MG CHEWABLE TAB PO SCH ×2 (13:20)
[2017-02-02] MEDS: [UNRECOGNIZED DRUG - OTHER] PO SCH ×6 (13:20→17:19)
[2017-02-02] MEDS: SENNOSIDES/DOCUSATE SODIUM TAB PO SCH ×4 (13:36→21:49)
--- NOTE | 2017-02-02 13:58 | HOSPPROG ---
Hospitalist Progress Note Assessment/Plan: Assessment: 66-year-old female presents with periodontal abscess and cellulitis Plan: Right mandibular subperiostial abscess with associated facial and cellulitis. S /P I&D and tooth extraction, POD #0 -cont Ertapenem -prn Ringle for pain -bowel regimen -trend wbc's -appreciate ID and oral surgery assistance Ischemic cardiomyopathy with chronic systolic congestive heart failure. No evidence of acute exacerbation, ejection fraction between 20 and 30%, EKG demonstrating normal sinus mechanism with Q-wave in lead 3, personally interpreted, troponin level negative on presentation -continue beta-ana maria, KUN -resume outpt lasix dose today -continue aspirin -Plavix has been held given that is been 4 years since her stent placement, last dosage was 11/2 a.m. She likely does not need DAPT at this point and may have increased risk of bleeding. Chronic hyponatremia. Baseline around 130 per review of outside records, continue to monitor Hypoxemia. Does not use at home. Has CINTHIA, on CPAP and may have some component of OHS. On 3 LPM since admission. No pleuritic symptoms or tachycardia. -check CXR -IS CINTHIA. Cont CPAP Diet. Cardiac, NPO after midnight Code. Full Prophylaxis. High risk patient, hold pharm today due to surgery, consider lovenox tomorrow, SCDs for now Disposition. Cont inpt Subjective: Pt feels ok. Pain controlled, still a bit numb from surgical I&D. No fevers. Eating well post-op. No CP or SOB. Notes h/o CINTHIA, uses CPAP. No home O2. Objective: Vital Signs Temp Pulse Resp BP Pulse Ox 36.3 C 60 14 155/68 H 97 02/02/17 12:45 02/02/17 12:45 02/02/17 12:45 02/02/17 12:45 02/02/17 12:45 Laboratory Results 02/02/17 04:21 02/02/17 04:21 02/01/17 02/02/17 02/03/17 05:59 05:59 04:59 Intake Total 1100 1923 500 Output Total 5 Balance 1100 1923 495 - Physical Exam Constitutional: no apparent distress Eyes: PERRL Ears, Nose, Mouth, Throat: moist mucous membranes, other (right sided facial swelling, erythema resolved) Cardiovascular: regular rate and rhythym Respiratory: no respiratory distress, clear to auscultation Gastrointestinal: normoactive bowel sounds, soft, non-tender abdomen Skin: warm Musculoskeletal: full muscle strength Neurologic: AAOx3 Psychiatric: interacting appropriately ICD10 Worksheet Patient Problems: Problems Problem Status Onset Cellulitis Acute Dental abscess Acute Acute hyponatremia Acute
[2017-02-02] MEDS: FUROSEMIDE 40 MG TAB PO SCH ×2 (14:22)
[2017-02-02] MEDS: HYDROCODONE/APAP 5/325 TAB PO PRN ×6 (14:24→21:44)
[2017-02-02] MEDS: ATORVASTATIN CALCIUM 40 MG TAB PO SCH ×2 (17:20)
[2017-02-02] MEDS: ERTAPENEM 1 GM in NS 100 ML IV SCH (18:24)
[2017-02-02] MEDS: LORazepam 1 MG TAB PO PRN ×2 (21:44)
[2017-02-02] MEDS: CHLORHEXIDINE GLUCONATE 15 ML UDL PO SCH ×2 (21:44)
[2017-02-03 07:32] VITALS: RESP 16
[2017-02-03] MEDS: ONDANSETRON DISINTEGRATING 4 MG TAB PO PRN ×2 (08:14)
[2017-02-03] MEDS: GABAPENTIN 300 MG CAP PO SCH ×2 (09:09)
[2017-02-03] MEDS: CHOLECALCIFEROL VIT D3 1,000 UNITS TAB PO SCH ×2 (09:09)
[2017-02-03] MEDS: CARVEDILOL 25 MG TAB PO SCH ×2 (09:09)
[2017-02-03] MEDS: FUROSEMIDE 40 MG TAB PO SCH ×4 (09:10→15:59)
[2017-02-03] MEDS: [UNRECOGNIZED DRUG - OTHER] PO SCH ×4 (09:10→11:43)
[2017-02-03] MEDS: LISINOPRIL 5 MG TAB PO SCH ×2 (09:10)
[2017-02-03] MEDS: CHLORHEXIDINE GLUCONATE 15 ML UDL PO SCH ×2 (09:10)
[2017-02-03] MEDS: NEXIUM 40MG PO SCH ×2 (09:11)
[2017-02-03] MEDS: SENNOSIDES/DOCUSATE SODIUM TAB PO SCH ×2 (09:12)
--- NOTE | 2017-02-03 09:12 | PCMIDPN ---
Assessment/Plan: 1. Subperiosteal dental abscess with concomitant facial cellulitis POD #1 s/p incision and drainage and extraction of tooth #31: Subjective: Feels better today. Status post incision and drainage of subperiosteal abscess and extraction of tooth number 31. Constipated. Facial cellulitis practically resolved. Objective: Ertapenem 1 g IV daily day 3 Afebrile Vital Signs Temp Pulse Resp BP Pulse Ox 36.7 C 70 16 154/82 H 95 02/03/17 07:29 02/03/17 07:29 02/03/17 07:29 02/03/17 07:29 02/03/17 07:29 Microbiology 02/02/17 10:25 Gram Stain - Final Mouth - Eswab 02/02/17 10:25 Gram Stain - Final Mouth - Eswab Laboratory Results 02/03/17 04:17 02/03/17 04:17 02/02/17 02/03/17 02/04/17 06:59 05:59 05:59 Intake Total Output Total Balance Blood cultures negative Mouth abscess Gram stain: 1+ PMNs 1+ coccobacilli - Physical Exam General Appearance: alert, no apparent distress EENT: other (Facial swelling on the right side is minimal. Cellulitis of the right face that had extended down into her neck is gone. [place] drain in place right lower molar area.) Respiratory: lungs clear Cardiac/Chest: regular rate, rhythm, systolic murmur Extremities: other (Peripheral IV site left forearm looks fine) Abdomen: non-tender, soft Skin: No rash ICD10 Worksheet Patient Problems: Problems Problem Status Onset Cellulitis Acute Dental abscess Acute Acute hyponatremia Acute
--- NOTE | 2017-02-03 10:25 | SOAPPROG ---
SOAP Progress Note Assessment/Plan: Assessment: 66 y F POD 1 after extraction #31, I&D of right mandibular subperiosteal abscess /intraoral drain placement, stable surgical site. Plan: OMFS to manage drain on outpatient basis, pt can contact office tomorrow for possible Tu or Wed appt post-operative instructions have been provided to pt d/c with periogard abx per team appreciate consult 02/03/17 10:20 Subjective: pt tolerating PO intake, pain manageable overnight Objective: Vital Signs Temp Pulse Resp BP Pulse Ox 36.7 C 70 16 154/82 H 95 02/03/17 07:29 02/03/17 09:09 02/03/17 07:29 02/03/17 09:10 02/03/17 07:29 Microbiology 02/02/17 10:25 Gram Stain - Final Mouth - Eswab 02/02/17 10:25 Gram Stain - Final Mouth - Eswab Laboratory Results 02/03/17 04:17 02/03/17 04:17 02/02/17 02/03/17 02/04/17 06:59 05:59 05:59 Intake Total Output Total Balance improvement of submental erythema, facial edema mildly improved, soft and fluctuant, CN II-XII grossly intact, BALA 20 mm with tenderness, to 25 mm with assistance, extraction site hemostatic, igor drain secured to right mandible , FOM soft, uvula midline ICD10 Worksheet Patient Problems: Problems Problem Status Onset Cellulitis Acute Dental abscess Acute Acute hyponatremia Acute
[2017-02-03 11:20] VITALS: TEMP 97.6
[2017-02-03] MEDS: ASPIRIN 81 MG CHEWABLE TAB PO SCH ×2 (11:42)
[2017-02-03 15:33] VITALS: BP 125/70; PULSE 63; O2SAT 93
[2017-02-03] MEDS: ERTAPENEM 1 GM in NS 100 ML IV SCH (15:56)
--- NOTE | 2017-02-03 18:14 | ASDISCHSUM ---
Discharge Information Plan Status:Home with No Needs Medically Cleared to Leave:02/03/2017 Discharge Date:02/03/2017 05:11 PM CM D/C Disposition:Home, Routine, Self-Care ADT D/C Disposition:Home, Routine, Self-Care Projected Discharge Date:02/03/2017 05:11 PM Transportation at D/C:Family Discharge Delay Reason: Follow-Up Date:02/03/2017 05:11 PM Discharge Slot:2 - 12:01 pm - 18:00 pm Final Diagnosis:Extraction of #31, I&D of right mandibular subperiosteal abscess/intraoral drain payal cement Placement Information Patient Contact Information Contact Name:ROSA Relationship: Address:[address] City:[place] Alternate Phone: [facility]/Zip Code:[place] [address] Email: Financial Information Financial Class: Primary Plan Desc:MEDICARE INPATIENT Primary Plan Number:[id number] Secondary Plan Desc:AARP/MDR SUPPLEMENT Secondary Plan Number:[id number] Assessment Information [facility] CM Progress Note CM Note CM Note Notes: Pt. is a 66-year-old woman experiencing facial pain and swelling. Has a periodonal abscess. Hx. HTN, chronic heart failure, breast cancer, CAD, hyperlipidemia, and smoking. Pt. on Ertapenem IV antibiotics at this time. Note: Pt. w/ several antibiotic allergies. Pt. lives w/ her and lives independently. CM to follow should Pt. need IV antibiotics at d/c. Date Signed: 02/01/2017 02:51 PM Electronically Signed By:Khadijah Flores LCSW [facility] CM Progress Note CM Note CM Note Notes: Reviewed chart for discharge plan, pt's progress. Per MD notes, pt to discharge home independently w/ family support. Oral Maxillofacial Surgery to manage drain as outpt. No needs identified, outside of pt's financial concerns. CM attempted to meet w/ pt Saturday, but pt was in surgery at the time. Pt to follow up as directed. No IM signed, not applicable, pt has Medicaid. CM avail for any further issues or concerns. Final Discharge Plan: Home independently w/ outpt follow up Date Signed: 02/03/2017 06:14 PM Electronically Signed By:Colleen Olson RN Intervention Information Intervention Type:*Incorrect Registration Date of Service:02/01/2017 11:34 AM Patient Type:Observation Staff Member:GARY Borjas, Suki Hours: Discipline: Severity: Comment:
--- NOTE | 2017-02-03 18:14 | ASDISCHSUM ---
Discharge Information Plan Status:Home with No Needs Medically Cleared to Leave:02/03/2017 Discharge Date:02/03/2017 05:11 PM CM D/C Disposition:Home, Routine, Self-Care ADT D/C Disposition:Home, Routine, Self-Care Projected Discharge Date:02/03/2017 05:11 PM Transportation at D/C:Family Discharge Delay Reason: Follow-Up Date:02/03/2017 05:11 PM Discharge Slot:2 - 12:01 pm - 18:00 pm Final Diagnosis:Extraction of #31, I&D of right mandibular subperiosteal abscess/intraoral drain payal cement Placement Information Patient Contact Information Contact Name:ROSA Relationship: Address:[address] City:[place] Alternate Phone: [facility]/Zip Code:[place] [address] Email: Financial Information Financial Class: Primary Plan Desc:MEDICARE INPATIENT Primary Plan Number:[id number] Secondary Plan Desc:AARP/MDR SUPPLEMENT Secondary Plan Number:[id number] Assessment Information [facility] CM Progress Note CM Note CM Note Notes: Pt. is a 66-year-old woman experiencing facial pain and swelling. Has a periodonal abscess. Hx. HTN, chronic heart failure, breast cancer, CAD, hyperlipidemia, and smoking. Pt. on Ertapenem IV antibiotics at this time. Note: Pt. w/ several antibiotic allergies. Pt. lives w/ her and lives independently. CM to follow should Pt. need IV antibiotics at d/c. Date Signed: 02/01/2017 02:51 PM Electronically Signed By:Khadijah Flores LCSW [facility] CM Progress Note CM Note CM Note Notes: Reviewed chart for discharge plan, pt's progress. Per MD notes, pt to discharge home independently w/ family support. Oral Maxillofacial Surgery to manage drain as outpt. No needs identified, outside of pt's financial concerns. CM attempted to meet w/ pt Saturday, but pt was in surgery at the time. Pt to follow up as directed. No IM signed, not applicable, pt has Medicaid. CM avail for any further issues or concerns. Final Discharge Plan: Home independently w/ outpt follow up Date Signed: 02/03/2017 06:14 PM Electronically Signed By:Colleen Olson RN Intervention Information Intervention Type:*Incorrect Registration Date of Service:02/01/2017 11:34 AM Patient Type:Observation Staff Member:GARY Borjas, Suki Hours: Discipline: Severity: Comment:
--- NOTE | 2017-02-03 18:14 | ASDISCHSUM ---
Discharge Information Plan Status:Home with No Needs Medically Cleared to Leave:02/03/2017 Discharge Date:02/03/2017 05:11 PM CM D/C Disposition:Home, Routine, Self-Care ADT D/C Disposition:Home, Routine, Self-Care Projected Discharge Date:02/03/2017 05:11 PM Transportation at D/C:Family Discharge Delay Reason: Follow-Up Date:02/03/2017 05:11 PM Discharge Slot:2 - 12:01 pm - 18:00 pm Final Diagnosis:Extraction of #31, I&D of right mandibular subperiosteal abscess/intraoral drain payal cement Placement Information Patient Contact Information Contact Name:ROSA Relationship: Address:[address] City:[place] Alternate Phone: [facility]/Zip Code:[place] [address] Email: Financial Information Financial Class: Primary Plan Desc:MEDICARE INPATIENT Primary Plan Number:[id number] Secondary Plan Desc:AARP/MDR SUPPLEMENT Secondary Plan Number:[id number] Assessment Information [facility] CM Progress Note CM Note CM Note Notes: Pt. is a 66-year-old woman experiencing facial pain and swelling. Has a periodonal abscess. Hx. HTN, chronic heart failure, breast cancer, CAD, hyperlipidemia, and smoking. Pt. on Ertapenem IV antibiotics at this time. Note: Pt. w/ several antibiotic allergies. Pt. lives w/ her and lives independently. CM to follow should Pt. need IV antibiotics at d/c. Date Signed: 02/01/2017 02:51 PM Electronically Signed By:Khadijah Flores LCSW [facility] CM Progress Note CM Note CM Note Notes: Reviewed chart for discharge plan, pt's progress. Per MD notes, pt to discharge home independently w/ family support. Oral Maxillofacial Surgery to manage drain as outpt. No needs identified, outside of pt's financial concerns. CM attempted to meet w/ pt Saturday, but pt was in surgery at the time. Pt to follow up as directed. No IM signed, not applicable, pt has Medicaid. CM avail for any further issues or concerns. Final Discharge Plan: Home independently w/ outpt follow up Date Signed: 02/03/2017 06:14 PM Electronically Signed By:Colleen Olson RN Intervention Information Intervention Type:*Incorrect Registration Date of Service:02/01/2017 11:34 AM Patient Type:Observation Staff Member:GARY Borjas, Suki Hours: Discipline: Severity: Comment:
--- NOTE | 2017-02-04 02:48 | GDS ---
[f rep st] DISCHARGE SUMMARY DISCHARGE DIAGNOSES: 1. Right mandibular subperiosteal abscess with associated facial and neck cellulitis. 2. Status post incision and drainage of above abscess. 3. Ischemic cardiomyopathy with chronic systolic heart failure. 4. Coronary artery disease, status post stenting 4 years ago. 5. Chronic hyponatremia with baseline around 130. 6. Hypoxemia, likely secondary to obstructive sleep apnea and obesity hypoventilation. Chest x-ray consistent with atelectasis. The patient was weaned to room air at discharge with incentive spiromet ry. 7. Obstructive sleep apnea, on continuous positive airway pressure. CONSULTANTS: 1. Dr. Radha Oneill, infectious disease. 2. JESIKA Anthony, ENT. 3. Dr. Kaykay Armstrong, oral surgeon. HISTORY: For details, please see the history and physical dated January 31, 2017. In brief, the dar boyd is a 66-year-old female with a history of ischemic cardiomyopathy and coronary artery disease wi th prior cardiac stenting, who presented to the emergency department with ongoing tooth pain after an outpatient attempted incision and drainage with increased facial pain, swelling and erythema extendi ng into her neck. She had been started on oral clindamycin 1 day prior to arrival. She was admitted to the hospital for further management. HOSPITAL COURSE: The patient was admitted to the med/surg unit. A CT scan done in the emergency dep artment showed a 0.6 x 1.2 x 1.6 cm posterior lower jaw periodontal abscess, as well as a swollen rig ht macular muscle associated with extensive subcutaneous edema and cellulitis from the jaw to the sup rasternal notch. Blood cultures were drawn which remained negative to date. The patient was started on IV ertapenem given her amoxicillin allergy. Infectious Disease consult was obtain followed by or al surgery consult. She ultimately underwent surgical I and D of the right mandibular subperiosteal abscess with placement of a Sheela drain and extraction of tooth #31. She clinically improved marke dly after this. Her white blood cell count normalized. She remained afebrile. She was able to eat and drink. Her surgical culture is preliminarily growing a gram-positive organism which has yet to b e identified. Given the patient's clinical improvement, she strongly desired to discharge. I discus sed the case with Infectious Disease, who feels it is reasonable for the patient to discharge on oral clindamycin, and Dr. Oneill will follow up on the cultures to ensure clindamycin is adequate coverage , once we have culture and sensitivities back. I recommended to the patient that she also follow up with Dr. Oneill by telephone. In addition, she will need oral surgery followup for outpatient managem ent of the drain. Given her amoxicillin allergy, she is discharged on clindamycin 300 mg three times daily for 7 more days. In addition, the patient requested a prescription for chlorhexidine mouthwas h. I agreed to this prescription, but advised her she should run this by her oral surgeon prior to s tarting this, given her recent surgical procedure with a drain in place. With respect to her coronar y artery disease, she remained stable. She did require 2-3 L of oxygen and a chest x-ray was perform ed which was consistent with atelectasis. She was started on incentive spirometry and was able to we an off oxygen, saturating 96% on room air at the time of discharge. In addition, it is noted she has been maintained on dual antiplatelet therapy with aspirin and Plavix. It has been 4 years since her last stent placement and I advised her she can likely discontinue the Plavix and remain on aspirin m onotherapy. Plavix was held during the hospitalization due to planned surgical intervention. She wa s continued on her aspirin. She should follow up with her lead web application developer for further discussion but at this point, her Plavix was discontinued at discharge. DISPOSITION: Patient is discharged home in stable condition. FOLLOWUP: 1. Dr. Armstrong, oral surgery in 2-[address] Radha Oneill, for followup on her wound culture and sensitivity. 3. Dr. Monika Pulido, primary care. PENDING STUDIES AT TIME OF DISCHARGE: Blood cultures are negative to date. Preliminary wound cultur e from the incision and drainage of her abscess is growing gram-positive organism. As above, Dr. Higinio Onelil, infectious disease, will follow up on this culture and sensitivity to ensure adequate ant ibiotic coverage. /[id number]/MODL
== END 2017-02-03 17:11 | disposition home or self-care (01) | DRG 137 ==
LOC: OBSVTOIN 19:26 → F3E 20:28
PROVIDERS: ADMIT Hospitalist; ATTEND Hospitalist
PROC: 0W9300Z Drainage of Oral Cavity and Throat with Drainage Device, Open Approach (ICD-10-PCS; principal; 2017-02-02 09:15)
PROC: 0CTX0Z0 Resection of Lower Tooth, Single, Open Approach (ICD-10-PCS; principal; 2017-02-02 09:15)
DX: K04.7 Periapical abscess without sinus (principal); L03.221 Cellulitis of neck; E87.1 Hypo-osmolality and hyponatremia; I11.0 Hypertensive heart disease with heart failure; I50.22 Chronic systolic (congestive) heart failure; J98.11 Atelectasis; I25.5 Ischemic cardiomyopathy; I25.10 Atherosclerotic heart disease of native coronary artery without angina pectoris; E78.5 Hyperlipidemia, unspecified; G47.33 Obstructive sleep apnea (adult) (pediatric); Z95.5 Presence of coronary angioplasty implant and graft; Z72.0 Tobacco use; Z85.3 Personal history of malignant neoplasm of breast
CPT/HCPCS: J0171; J1100; J1335; J2001; J2250; J2405; J2704; J3010; Q9967

== ENCOUNTER 2017-10-04 05:44 | Inpatient (IN) | payer OTHER, MEDICARE ==
[2017-10-04] MEDS ORDERED: ceFAZolin 2 GM/DEXTROSE 100 ML IV ONE (06:01)
[2017-10-04] MEDS ORDERED: LR 1,000 ML IV ONE (06:06)
--- NOTE | 2017-10-04 06:49 | PDHPUP ---
History & Physical Update H&P update statement: This history and physical update is based on an assessment of the patient which was completed after admission or registration (within 24 hours), but prior to the surgery/procedure. H&P update: H&P reviewed & patient examined, no change in patient's condition since H&P completed
--- NOTE | 2017-10-04 06:58 | PDANEPAE ---
ANE History of Present Illness left ankle arthroscopy ANE Past Medical History - Cardiovascular History Hx Hypertension: Yes Hx Arrhythmias: No Hx Chest Pain: No Hx Coronary Artery / Peripheral Vascular Disease: Yes Hx CHF / Valvular Disease: Yes Hx Palpitations: No Cardiovascular History Comment: htn- controlled with meds but goes up when nervous. cad with stent 2009. chf. hypercholesterolemia. seen at [facility] - Pulmonary History Hx COPD: No Hx Asthma/Reactive Airway Disease: No Hx Recent Upper Respiratory Infection: No Hx Oxygen in Use at Home: No Hx Sleep Apnea: Yes Sleep Apnea Screening Result - Last Documented: Positive Pulmonary History Comment: munir positive uses cpap- instructed pt to bring to hospital - Neurologic History Hx Cerebrovascular Accident: No Hx Seizures: No Hx Dementia: No Neurologic History Comment: DDD c5-6, C6-7. 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 hx of panic attacks after mother - Cancer History Hx Cancer: Yes Cancer History Comment: breast cancer 2006 - Congenital Disorder History Hx Congenital Disorders: No - GI History Hx Gastrointestinal Disorders: Yes Gastrointestinal History Comment: reflux- on nexium - Other Health History Other Health History: wears glasses. hx of lymphodema. right breast becomes hard and painful from radiation - Chronic Pain History Chronic Pain: Yes (right breast) - Surgical History Prior Surgeries: right breast biopsies x2 and lumpectomies 2006. partial mastectomy- right 2006. port placed and removed. right femur fx 08/2014. hardware removal 10/2014. right CHERRY. cardiac stent 2009. left knee scope 1991. cataract surgery- left 1998. right wrist surgery. left ankle surgery ANE Review of Systems Review of systems is: negative Review of Systems: - Exercise capacity Exercise capacity: <4 METS METS (RN): 3 METS ANE Patient History - Allergies Allergies/Adverse Reactions: amoxicillin trihydrate [From Augmentin] Allergy (Verified 09/16/17 14:58) blisters to hands ciprofloxacin [From Cipro] Allergy (Verified 09/16/17 14:58) bumps in throat off and on codeine [Codeine] Allergy (Verified 09/16/17 14:58) Vomiting Sulfa (Sulfonamide Antibiotics) Allergy (Verified 09/16/17 14:58) has never had- father was very allergic - Home Medications Home Medications: Aspirin [Aspirin 81mg (*)] 81 mg PO DAILY@1200 01/31/17 [Last Taken 09/27/17] Atorvastatin Calcium [Lipitor 40 mg (*)] 40 mg PO DAILY18 01/31/17 [Last Taken 10/03/17] Carvedilol [Coreg (*)] 25 mg PO BIDMEAL 01/31/17 [Last Taken 10/03/17] Esomeprazole Mag Trihydrate [Nexium] 40 mg PO DAILY 01/31/17 [Last Taken ] Fluticasone Nasal [Flonase Nasal [place]] 1 sprays NASAL DAILY PRN 01/31/17 [Last Taken 10/04/17] Furosemide [Lasix 40 MG (*)] 40 mg PO DAILY 01/31/17 [Last Taken 10/03/17] Herbals/Supplements -Info Only 1 ea PO DAILY 01/31/17 [Last Taken 09/27/17] Calcium Carbonate [Oyster Shell Calcium 500 mg (*)] 1,000 mg PO DAILY 09/16/17 [ Last Taken 09/27/17] Cholecalciferol Vit D3 [Vitamin D3 2000 units tab (OTC)] 2,000 units PO DAILY [Last Taken 09/27/17] Clopidogrel Bisulfate [Plavix (*)] 75 mg PO DAILY 09/16/17 [Last Taken 09/27/17] Lisinopril [Zestril 10 mg (*)] 10 mg PO DAILY@12 09/16/17 [Last Taken 10/04/17] - NPO status NPO Status: no food or drink >8 hours NPO Since - Liquids (Date): 10/03/17 NPO Since - Liquids (Time): 21:00 NPO Since - Solids (Date): 10/03/17 NPO Since - Solids (Time): 19:00 - Anes Hx Anes Hx: no prior problems - Smoking Hx Smoking Status: Former smoker - Alcohol Use Alcohol Use: Heavy - Family Anes Hx Family Anes Hx: none Family Hx Anesthesia Complications: none ANE Labs/Vital Signs - Vital Signs Blood Pressure: 157/69 Heart Rate: 62 Respiratory Rate: 18 O2 Sat (%): 96 Height: 165.1 cm Weight: 80.739 kg ANE Physical Exam - Airway Neck exam: FROM Mallampati Score: Class 2 Mouth exam: normal dental/mouth exam - Pulmonary Pulmonary: no respiratory distress - Cardiovascular Cardiovascular: regular rate and rhythym - ASA Status ASA Status: III
[2017-10-04] MEDS ORDERED: MIDAZOLAM 2 MG/2 ML VIAL IVP ONE (07:06)
[2017-10-04] MEDS ORDERED: MIDAZOLAM 2 MG/2 ML VIAL ONE (07:09)
[2017-10-04] MEDS ORDERED: BUPIVACAINE 0.25% 30 ML SDV ONE (07:15)
[2017-10-04] MEDS ORDERED: fentaNYL 100 MCG/2 ML INJ ONE (07:17)
[2017-10-04] MEDS ORDERED: PROPOFOL 200 MG/20 ML VIAL ONE (07:17)
[2017-10-04] MEDS ORDERED: LIDOCAINE 2% 5 ML SDV ONE (07:17)
[2017-10-04] MEDS ORDERED: DEXAMETHASONE 4 MG/ML VIAL ONE (07:45)
[2017-10-04] MEDS ORDERED: ONDANSETRON 4 MG/2 ML VIAL ONE (07:45)
[2017-10-04] MEDS: BUPIVACAINE 0.25% 30 ML SDV ONE ×2 (08:08→08:46)
[2017-10-04] MEDS ORDERED: PROMETHAZINE HCL 25 MG/ML INJ IVP PRN (08:59)
[2017-10-04] MEDS ORDERED: HYDROCODONE/APAP 5/325 TAB PO PRN (08:59)
[2017-10-04] MEDS ORDERED: fentaNYL 100 MCG/2 ML INJ IVP PRN (08:59)
[2017-10-04] MEDS ORDERED: ONDANSETRON 4 MG/2 ML VIAL IVP PRN ×2 (08:59→11:58)
[2017-10-04] MEDS ORDERED: ALBUTEROL 3 ML DEYVIAL IH PRN (08:59)
[2017-10-04] MEDS ORDERED: NALOXONE HCL 0.4 MG/ML INJ IVP PRN ×2 (08:59)
--- NOTE | 2017-10-04 08:59 | POSTANESTH ---
Post Anesthetic Evaluation Cardiovascular Status: Normal, Stable Respiratory Status: Normal, Stable Level of Consciousness/Mental Status: Can Participate in Eval Pain Control: Adequate, Prn Tx Ordered Nausea/Vomiting Control: Adequate, Prn Tx Ordered Complications Possibly Related to Anesthesia: None Noted
--- NOTE | 2017-10-04 09:02 | POSTOPPROG ---
Post Op Note Date of Operation: 10/04/17 Surgeon: Adal Felipe Outreach Manager: Teresa Anesthesiologist: Frankie Anesthesia: GET(General Endotracheal) Pre-op Diagnosis: left peroneal tendon tear, ankle impingement Post-op Diagnosis: same Indication: above Procedure: left ankle scope, peroneal tendon transfer Inf/Abcess present in the surg proc area at time of surgery?: No EBL: Minimal
--- NOTE | 2017-10-04 10:30 | GOP ---
[f rep st] OPERATIVE REPORT DATE OF OPERATION: 10/04/2017 SURGEON: Adal Felipe MD POLICE LIAISON: Reji Moore. ANESTHESIA: General with popliteal block. PREOPERATIVE DIAGNOSIS: Left peroneal tendinitis, peroneus brevis tear, and left ankle impingement. POSTOPERATIVE DIAGNOSIS: Left peroneal tendinitis, peroneus brevis tear, and left ankle impingement. PROCEDURE PERFORMED: 1. Left ankle arthroscopy with extensive debridement including anterior bony decompression. 2. Left ankle peroneal debridement of longus and brevis. 3. Peroneus brevis to longus tendon transfer. FINDINGS: SPECIMENS: None. ESTIMATED BLOOD LOSS: 5 mL. INDICATIONS: This is a 67-year-old female with significant pain in her peroneal tendons, swelling, a nd a tear seen on MRI. She also had symptoms of impingement in her ankle. I discussed the above-men tioned surgery with her and she elected to proceed. She had failed conservative management. We disc ussed risks of continued pain, infection, cardiac and stroke-type complications, blood clot, failure of the transfer, weakness, nerve injury, and she elected to proceed. Informed consent obtained. All questions answered. She was marked preoperatively. DESCRIPTION OF PROCEDURE: She was taken to the operative suite. Sterilely prepped and draped in the usual fashion. Time-out was performed verifying patient, side, site, and location with agreement of the team. Esmarch was utilized to insufflate the joint and establish a medial portal and lateral wo rking portals. Significant synovitis throughout the joint which was debrided. I debrided the anteri or, medial, lateral, and posterior gutters of extra scar and synovitic tissue. I decompressed the nick ny left upper anterior tibia with a bur and then removed the distraction, tested this, and she did no t impinge. The scope was removed. I made an incision over the peroneals and extended this. I disse cted out the 2 peroneal tendons. The brevis was significantly torn and ratty with significant longit udinal tears and degeneration. It was unsalvageable. I resected this distally and proximally. I de brided both the peroneus longus and brevis tendons of tenosynovitis. I then transferred the brevis t o the longus with appropriate tension using #2 FiberWire and an 0 Vicryl. I then irrigated, closed w ith #1 Vicryl, 0 Vicryl, 2-0 Vicryl, 3-0 Quill, and Dermabond. She was taken to PACU in a splint and stable condition. IMPLANTS: None. COMPLICATIONS: None. DRAINS: None. CONDITION: Stable. /[id number]/MODL
[2017-10-04] MEDS ORDERED: HYDROmorphONE/DILAUDID 1 MG/ML INJ IVP PRN (11:58)
[2017-10-04] MEDS ORDERED: oxyCODONE IR 5 MG TAB PO PRN (11:58)
[2017-10-04] MEDS ORDERED: FLUTICASONE NASAL 120 SPRAYS/16 GM MDI EACHNARE PRN (12:01)
[2017-10-04] MEDS: ceFAZolin 2 GM/DEXTROSE 100 ML IV SCH ×2 (14:32→21:20)
[2017-10-04] MEDS ORDERED: ACETAMINOPHEN 325 MG TAB PO PRN (15:21)
[2017-10-04] MEDS: HYDROCODONE/APAP 5/325 TAB PO PRN ×2 (16:04→21:19)
[2017-10-04] MEDS ORDERED: ATORVASTATIN CALCIUM 40 MG TAB PO SCH (18:00)
[2017-10-04] MEDS: CARVEDILOL 25 MG TAB PO SCH (18:34)
[2017-10-04] MEDS ORDERED: LORazepam 1 MG TAB PO ONE (23:00)
[2017-10-05] MEDS: HYDROCODONE/APAP 5/325 TAB PO PRN (02:26)
[2017-10-05 07:55] VITALS: BP 139/81
--- NOTE | 2017-10-05 07:55 | SOAPPROG ---
SOAP Progress Note Assessment/Plan: Assessment: Left ankle scope and peroneal tendon transfer 10/04 Plan: Having difficulty mobilizing and pain control issues chronic oxygenation difficultulties exaxerterbated by surgery improved vitals today will mobilize with PTOT if able to mobilize and wean off O2 may d/c home if not may need placement 10/05/17 07:52 Subjective: minimal pain Objective: Vital Signs Temp Pulse Resp BP Pulse Ox 36.9 C 68 16 141/63 H 91 L 10/05/17 02:29 10/05/17 02:29 10/05/17 02:29 10/05/17 02:29 10/05/17 02:29 10/04/17 10/05/17 10/06/17 05:59 05:59 05:59 Intake Total 1725 Output Total 405 Balance 1320 splint cdi ICD10 Worksheet Patient Problems: Problems Problem Status Onset Acute hyponatremia Acute Cellulitis Acute Dental abscess Acute
[2017-10-05] MEDS ORDERED: CHOLECALCIFEROL VIT D3 2,000 UNITS TAB/CAP PO SCH (09:00)
[2017-10-05] MEDS ORDERED: CLOPIDOGREL BISULFATE 75 MG TAB PO SCH (09:00)
[2017-10-05] MEDS ORDERED: CALCIUM CARBONATE 500 MG TAB PO SCH (09:00)
[2017-10-05] MEDS ORDERED: PANTOPRAZOLE SODIUM 40 MG TAB PO SCH (09:00)
[2017-10-05] MEDS ORDERED: FUROSEMIDE 40 MG TAB PO SCH (09:00)
[2017-10-05] MEDS ORDERED: Herbals/Supplements -Info Only PO SCH (09:00)
[2017-10-05] MEDS ORDERED: ENOXAPARIN 40 MG/0.4 ML SYR SC SCH (09:00)
--- NOTE | 2017-10-05 09:50 | ASMTCMCOM ---
CM Note CM Note Notes: Pt is s/p L ankle scope and peroneal tendon transfer. PT recommending home w/supervison. Pt plans to dc home w/ who will be available to help her. She has out pt therapy set up. Discussed w/RN. No CM needs. Date Signed: 10/05/2017 09:49 AM Electronically Signed By:Joan Corona RN
--- NOTE | 2017-10-05 09:51 | ASMTDCNOTE ---
Case Management Discharge Discharge Order Complete? Answers: Yes Patient to Obtain Answers: via Family Medications Transportation Arranged Answers: Family/Friends Family Notified Answers: Yes Discharge Comments Notes: Pt will dc home w/ and f/u w/ out pt therapy, no CM needs. Date Signed: 10/05/2017 09:50 AM Electronically Signed By:Joan Corona RN
[2017-10-05] MEDS: CARVEDILOL 25 MG TAB PO SCH (10:04)
--- NOTE | 2017-10-05 10:31 | PDMN ---
Medical Necessity Medical necessity: Pt meets IP criteria per MD; est los >2 mn s/p L ankle arthroscopy w/extensive debridement; pt having difficulty mobilizing, pain control issues & chronic oxygenation issues exacerbated by surgery; admit for further monitoring, pain management & therapies; hx CHF, breast cancer; per progress note & order 10/04/17
[2017-10-05] MEDS ORDERED: LISINOPRIL 10 MG TAB PO SCH (12:00)
[2017-10-05] MEDS ORDERED: ASPIRIN 81 MG CHEWABLE TAB PO SCH (12:00)
--- NOTE | 2017-10-05 13:37 | GDS ---
[f rep st] DISCHARGE SUMMARY HOSPITALIZATION: She was admitted after a left ankle arthroscopy and peroneal tendon debridement. S he was unable to go home. She had hypoxia in the postop area, significant pain, and inability to mob ilize. She also suffers from many chronic medical conditions. She improved over the following day a fter admission so much so that she is able to be discharged home. She has cleared physical therapy a nd is able to mobilize effectively. She has restarted home medications including aspirin and Plavix that will serve as DVT prophylaxis. She was given prescriptions for [place] for pain and Zofran for na usea. She will follow up in 10 days. She will remain in a splint. She can weight bear for transfer s. Otherwise, she is nonweightbearing. She will keep it dry, iced, and elevated. /[id number]/MODL
== END 2017-10-05 09:49 | disposition home or self-care (01) | DRG 941 ==
LOC: F3N 05:44 → EDSTATUS 07:15 → OBSVTOIN 12:01 → F3N 13:37
PROVIDERS: ADMIT Orthopaedic Surgery; ATTEND Orthopaedic Surgery
DX: G89.18 Other acute postprocedural pain (principal); R09.02 Hypoxemia; M24.872 Other specific joint derangements of left ankle, not elsewhere classified; M65.872 Other synovitis and tenosynovitis, left ankle and foot; M77.52 Other enthesopathy of left foot and ankle; I11.0 Hypertensive heart disease with heart failure; I25.10 Atherosclerotic heart disease of native coronary artery without angina pectoris; Z95.5 Presence of coronary angioplasty implant and graft; I50.9 Heart failure, unspecified; E78.00 Pure hypercholesterolemia, unspecified; G47.33 Obstructive sleep apnea (adult) (pediatric); M50.322 Other cervical disc degeneration at C5-C6 level; M50.323 Other cervical disc degeneration at C6-C7 level; G62.2 Polyneuropathy due to other toxic agents; T45.1X5S Adverse effect of antineoplastic and immunosuppressive drugs, sequela; E66.09 Other obesity due to excess calories; F41.9 Anxiety disorder, unspecified; Z85.3 Personal history of malignant neoplasm of breast; Z96.641 Presence of right artificial hip joint; Z87.891 Personal history of nicotine dependence
CPT/HCPCS: 97161-GP; 97165-GO; G8978-GP-CJ; G8979-GP-CI; G8987-GO-CI; G8988-GO-CI; G8989-GO-CI; J0690; J1100; J2250; J2405; J2704; J3010

== ENCOUNTER → 2017-12-13 | Outpatient (CLI) | payer OTHER, MEDICARE | LOC: FIMAGING 13:09 | PROVIDERS: ATTEND Family Medicine | DX: Z12.31 Encounter for screening mammogram for malignant neoplasm of breast (principal); Z85.3 Personal history of malignant neoplasm of breast ==